=== PATIENT | male | born 1945 | race Caucasian/White ===

== ENCOUNTER 2018-06-13 08:10 | Inpatient (IN) | payer MEDICARE, OTHER ==
[2018-06-13] VITALS (11 sets, daily range): BP systolic 107–157; BP diastolic 44–74
[~2018-06-13] VITALS: Ht 180.3 cm; Wt 112.0 kg
[~2018-06-13 08:10] MED LIST: ALBU8HFA PO; ASPI-1265 PO; ATOR20TA66 PO; BENA10TA75 PO; GLU850T PO; INSU100V9 SQ; MAGN250T11 PO; MELO-102 PO; NORT50CA PO; NOVRI SQ; PHEN100C4 PO
[2018-06-13] MEDS ORDERED: heparin 10,000 units/1 ML INJ IV ONE ×2 (08:20→09:10)
[2018-06-13] MEDS ORDERED: heparin 25,000 UNIT/250ml bag 250 ML IV SCH ×4 (08:20→09:34)
[2018-06-13 08:50] LABS: BASOPHILS # (AUTO) 0.1 X10'3 (0-0.2); BASOPHILS % (AUTO) 1.2 % (0-1); EOSINOPHILS # (AUTO) 0.1 X10'3 (0-0.9); EOSINOPHILS % (AUTO) 1.7 % (0-6); HEMATOCRIT 44.4 % (42.0-52.0); HEMOGLOBIN 15.3 g/dl (14.0-17.9); LYMPHOCYTES # (AUTO) 2.2 X10'3 (1.1-4.8); LYMPHOCYTES % (AUTO) 27.9 % (21-51); MEAN CORPUSCULAR HEMOGLOBIN 30.6 PG (27.0-31.0); MEAN CORPUSCULAR HGB CONC 34.5 g/dL (33.0-36.5); MEAN CORPUSCULAR VOLUME 88.7 FL (78-98); MEAN PLATELET VOLUME 9.4 FL (7.4-10.4); MONOCYTES # (AUTO) 0.7 X10'3 (0-0.9); NEUTROPHILS # (AUTO) 4.8 X10'3 (1.8-7.7); NEUTROPHILS % (AUTO) 60.2 % (42-75); PLATELET COUNT 247 X10'3 (140-440); RED CELL DISTRIBUTION WIDTH 14.5 % (11.5-14.5)
[2018-06-13] MEDS ORDERED: ondansetron/PF 4mg/2ml inj IV PRN (09:10)
[2018-06-13] MEDS ORDERED: acetaminophen 325mg tablet PO PRN (09:10)
[2018-06-13] MEDS ORDERED: magnesium hydroxide 30ml (MOM) UD suspension PO PRN (09:10)
[2018-06-13] MEDS ORDERED: nitroGLYCERIN 0.4mg SUBLingual tab SL PRN (09:10)
[2018-06-13] MEDS ORDERED: heparin 10,000 units/1 ML INJ IV PRN (09:10)
[2018-06-13] MEDS ORDERED: mag hydrox/Alum hydrox/simeth 30ml oral suspension PO PRN (09:10)
[2018-06-13 09:17] LABS: ALANINE AMINOTRANSFERASE 39 U/L (12-78); ALBUMIN 3.6 G/DL (3.4-5.0); ALKALINE PHOSPHATASE 119 IU/L (46-116); ANION GAP 8 (8-16); BILIRUBIN,TOTAL 0.1 MG/DL (0.1-1.0); BLOOD UREA NITROGEN 20 MG/DL (7-18); BUN/CREATININE RATIO 20.2 (5.4-32.0); CALCIUM 9.1 MG/DL (8.5-10.1); CHLORIDE 102 MMOL/L (99-107); CREATININE 0.99 MG/DL (0.60-1.10); GLUCOSE 190 MG/DL (70-104); MAGNESIUM 1.8 MG/DL (1.5-2.4); SODIUM 137 MMOL/L (135-145); TOTAL CARBON DIOXIDE 26.7 MMOL/L (24-32); TOTAL PROTEIN 7.1 G/DL (6.4-8.2); eGFR 75 ML/MIN
[2018-06-13 09:19] LABS: ASPARTATE AMINO TRANSFERASE 24 U/L (10-37); POTASSIUM 4.2 MMOL/L (3.5-5.1)
[2018-06-13 09:20] LABS: PARTIAL THROMBOPLASTIN TIME 26 SECONDS (22-32); PROTHROMBIN TIME 9.8 SECONDS (9.0-12.0)
[2018-06-13] MEDS: morphine 4 MG/ML inj SYRINge IV PRN ×4 (11:15→22:16)
--- NOTE | 2018-06-13 11:30 | NUR ---
Received report from Tiffanie SLAUGHTER in ED and had the opportunity to ask questions. Pt will be brought up in 15 minutes.
--- NOTE | 2018-06-13 11:45 | NUR ---
Pt admitted from ED via gurney, accompanied by staff and family member. Pt transferred to bed via ambulation with standby assist. Tele monitor applied, vital signs taken-stable. Pt oriented to room, call light within reach.
--- NOTE | 2018-06-13 12:18 | NUR ---
Paged Dr Joshua regarding trop of 0.87. No hospitalist assigned yet. PAGER ID: [phone] MESSAGE: Brook [phone] RE: Eliecer Saha [id number]. Critical trop 0.87.
[2018-06-13] MEDS ORDERED: regadenoson 0.4mg/5ml syringe IV ONE ×2 (14:45→14:47)
[2018-06-13] MEDS ORDERED: aminophylline 250mg/10ml inj. IV ONE (14:45)
[2018-06-13] MEDS ORDERED: aminophylline inj. 10 ML IV ONE (14:47)
--- NOTE | 2018-06-13 15:39 | NUR ---
Paged Dr Joshua about pt Diabetic history and initiating protocol. PAGER ID: [phone] MESSAGE: Brook [phone]. RE: Eliecer Saha [id number] Patient is diabetic and currently uses insulin at home. A1C 7.2. Would you like to start hyper/hypoglycemic and ACHS protocol? Thank you.
[2018-06-13] MEDS ORDERED: dextrose 50%-water 50ml dispensing syringe IV PRN ×2 (16:55)
[2018-06-13] MEDS ORDERED: enoxaparin 80mg/0.8ml syringe SUBCUT ONE (16:55)
[2018-06-13] MEDS ORDERED: MESSAGE TO PHARMACY PO ONE (16:55)
[2018-06-13] MEDS ORDERED: dextrose ORAL solution 15 GM/59 ML bottle PO PRN ×2 (16:55)
[2018-06-13] MEDS ORDERED: glucagon, human recombinant 1mg kit SUBCUT PRN (16:55)
[2018-06-13] MEDS ORDERED: enoxaparin 30mg/0.3ml syringe SUBCUT ONE (17:10)
--- NOTE | 2018-06-13 17:10 | NUR ---
Report called to Donna RN at [facility] unit. Patient will be transferred to Room 307. All questions answered.
--- NOTE | 2018-06-13 17:15 | NUR ---
Pt transferred to ACCE unit room 307 via wheelchair, escorted by this RN. Tele monitor D/Cd, belongings sent with patient. Family members accompanied patient. Patient stable with no complaints at time of transfer.
--- NOTE | 2018-06-13 17:20 | NUR ---
Received patient via wheelchair after receiving report from Brook SLAUGHTER. Pt ambulated to bed with standby assist. Daughter and at bedside. VSS. Will continue to monitor closely.
--- NOTE | 2018-06-13 18:30 | NUR ---
Dr. Virk at bedside. New orders noted.
[2018-06-13] MEDS: normal saline 1000ml 1,000 ML IV SCH (18:31)
[2018-06-13] MEDS: metoprolol tartrate 25mg tablet PO SCH (19:20)
[2018-06-13] MEDS: phenytoin sod ER 100mg capsule PO SCH (19:47)
[2018-06-13] MEDS: nortriptyline 25mg capsule PO SCH (19:47)
[2018-06-13] MEDS ORDERED: predniSONE 20 mg tablet PO ONE (20:00)
[2018-06-13] MEDS: insulin glargine (Lantus) pen - multi-dose SQ SCH (21:00)
[2018-06-14] VITALS (14 sets, daily range): BP systolic 107–154; BP diastolic 50–80
--- NOTE | 2018-06-14 00:16 | NUR ---
Problems reprioritized. Patient report given, questions answered & plan of care reviewed with Darrel SLAUGHTER.
--- NOTE | 2018-06-14 00:17 | NUR ---
Patient in room MED 307. I have received report from KASANDRA Thompson and had the opportunity to ask questions and assume patient care.
[2018-06-14] MEDS: morphine 4 MG/ML inj SYRINge IV PRN ×2 (02:18→21:36)
--- NOTE | 2018-06-14 06:00 | NUR ---
Patient in room MED 307. I have received report from KASANDRA MUÑOZ, and had the opportunity to ask questions and assume patient care.
[2018-06-14 06:34] LABS: BASOPHILS # (AUTO) 0.1 X10'3 (0-0.2); BASOPHILS % (AUTO) 0.8 % (0-1); EOSINOPHILS % (AUTO) 0.3 % (0-6); HEMATOCRIT 44.9 % (42.0-52.0); HEMOGLOBIN 15.3 g/dl (14.0-17.9); LYMPHOCYTES # (AUTO) 1.2 X10'3 (1.1-4.8); LYMPHOCYTES % (AUTO) 15.6 % (21-51); MEAN CORPUSCULAR HEMOGLOBIN 30.3 PG (27.0-31.0); MEAN CORPUSCULAR HGB CONC 34.1 g/dL (33.0-36.5); MEAN PLATELET VOLUME 9.5 FL (7.4-10.4); MONOCYTES # (AUTO) 0.4 X10'3 (0-0.9); MONOCYTES % (AUTO) 5.2 % (2-12); NEUTROPHILS # (AUTO) 5.9 X10'3 (1.8-7.7); NEUTROPHILS % (AUTO) 78.1 % (42-75); PLATELET COUNT 236 X10'3 (140-440); RED BLOOD COUNT 5.04 X10'6 (4.70-6.10); RED CELL DISTRIBUTION WIDTH 14.2 % (11.5-14.5); WHITE BLOOD COUNT 7.5 X10'3 (4.5-11.0)
[2018-06-14 06:44] LABS: ALBUMIN 3.5 G/DL (3.4-5.0); ANION GAP 7 (8-16); BLOOD UREA NITROGEN 20 MG/DL (7-18); CALCIUM 8.4 MG/DL (8.5-10.1); CHLORIDE 102 MMOL/L (99-107); GLUCOSE 257 MG/DL (70-104); SODIUM 135 MMOL/L (135-145); TOTAL CARBON DIOXIDE 25.6 MMOL/L (24-32); eGFR 74 ML/MIN
[2018-06-14 06:45] LABS: POTASSIUM 4.5 MMOL/L (3.5-5.1)
[2018-06-14] MEDS ORDERED: predniSONE 20 mg tablet PO ONE (08:00)
[2018-06-14] MEDS: aspirin 81mg tablet.DR PO SCH (08:30)
[2018-06-14] MEDS: magnesium oxide 400mg tablet PO SCH ×2 (08:31→20:20)
[2018-06-14] MEDS: metoprolol tartrate 25mg tablet PO SCH ×2 (08:31→20:20)
[2018-06-14] MEDS: lisinopril 10 MG tablet PO SCH (08:32)
[2018-06-14] MEDS: atorvastatin 20mg tablet PO SCH (08:32)
[2018-06-14] MEDS: normal saline 1000ml 1,000 ML IV SCH (08:35)
[2018-06-14] MEDS: insulin Lispro (HumaLOG) vial - multi-dose SQ SCH (08:50)
[2018-06-14] MEDS: phenytoin sod ER 100mg capsule PO SCH ×2 (12:00→20:18)
--- NOTE | 2018-06-14 12:07 | NUR ---
DM consult, A1C 7.2, patient and his met at bedside, provided written DM education handout with verbal review and referral to outpatient DM education class on Monday. Patient verbalized that he takes his metformin, insulin, checks his BG and has no questions at this time. Addendum: 06/14/18 at [address] Amended: Links added.
--- NOTE | 2018-06-14 15:00 | NUR ---
PATIENT PREPPED/SHAVED FOR FINANCIAL CONTROLLER. [facility] BATH PROVIDED. NEW GOWN. PATIENT'S [place] BAND AND HEARING AIDS GIVEN TO HIS FOR SAFEKEEPING. PATIENT VERBALIZES AWARENESS OF PROCEDURE AND POST-PROCEDURE EXPECTATIONS. PATIENT AND HIS SPOUSE DENY ANY QUESTIONS OR CONCERNS.
[2018-06-14] MEDS ORDERED: LIDOcaine 1% (10mg/ml)w/preservative injection 20ml MDV ONE (16:45)
[2018-06-14] MEDS ORDERED: iohexol 350MG/ML 100ml bottle IV ONE (16:45)
[2018-06-14] MEDS ORDERED: midazolam 2 mg/2 ml injection ONE (16:45)
[2018-06-14] MEDS ORDERED: fentaNYL/PF 50MCG/1 ML 2ML syringe ONE (16:45)
[2018-06-14] MEDS ORDERED: iohexol 350 MG/ML 50ML vial IV ONE (16:45)
--- NOTE | 2018-06-14 17:00 | NUR ---
PATIENT OFF UNIT TO UPHOLSTERY COVERS INSPECTOR ALERT, ORIENTED, CALM, AND COOPERATIVE. DENIES PAIN AT THIS TIME. VITAL SIGNS STABLE.
[2018-06-14] MEDS ORDERED: diphenhydrAMINE 50 mg/ml inj ONE (17:09)
[2018-06-14] MEDS ORDERED: HYDROmorphone 1 mg/ml syringe ONE (17:29)
[2018-06-14] MEDS ORDERED: nitroGLYCERIN-Tridil 50MG/D5W 250 ML IV ONE (17:37)
--- NOTE | 2018-06-14 18:00 | NUR ---
Patient in room MED 307. I have received report from [facility] and had the opportunity to ask questions and assume patient care.
[2018-06-14] MEDS ORDERED: OXAZEpam 15mg capsule PO PRN (18:35)
[2018-06-14] MEDS ORDERED: normal saline 1000ml 1,000 ML IV SCH (18:35)
[2018-06-14] MEDS ORDERED: HYDROcodone/acetaminophen 5mg/325mg tablet PO PRN (18:35)
[2018-06-14] MEDS ORDERED: HYDROcodone/acetaminophen 10/325mg tab PO PRN (18:35)
[2018-06-14] MEDS ORDERED: proCHLORperazine 10 MG/2 ml inj IV PRN (18:35)
--- NOTE | 2018-06-14 20:00 | NUR ---
Patient was in heart cath procedure, wasnt able to assess blood glucose level. Addendum: 06/15/18 at 0026 by Santiago Estes RN Amended: Links added.
[2018-06-14] MEDS: nortriptyline 25mg capsule PO SCH (20:17)
[2018-06-14] MEDS: insulin glargine (Lantus) pen - multi-dose SQ SCH (22:32)
--- NOTE | 2018-06-14 22:42 | NUR ---
Delisa FOX "Pt Yifan Rm 307 has continued chest pain after 3 x doses of nitro. 10 chest pain/pressure. Thanks Tevin RN ext 2001"
[2018-06-14] MEDS ORDERED: nitroGLYCERIN-Tridil 50MG/D5W 250 ML IV SCH (22:50)
[2018-06-15 02:00] VITALS: BP 108/55
[2018-06-15 05:41] LABS: BASOPHILS # (AUTO) 0.1 X10'3 (0-0.2); EOSINOPHILS # (AUTO) 0.2 X10'3 (0-0.9); RED CELL DISTRIBUTION WIDTH 14.1 % (11.5-14.5)
[2018-06-15 05:44] LABS: BASOPHILS % (AUTO) 0.9 % (0-1); EOSINOPHILS % (AUTO) 1.7 % (0-6); HEMATOCRIT 42.2 % (42.0-52.0); HEMOGLOBIN 14.6 g/dl (14.0-17.9); LYMPHOCYTES # (AUTO) 2.7 X10'3 (1.1-4.8); LYMPHOCYTES % (AUTO) 24.7 % (21-51); MEAN CORPUSCULAR HEMOGLOBIN 30.8 PG (27.0-31.0); MEAN CORPUSCULAR HGB CONC 34.5 g/dL (33.0-36.5); MEAN CORPUSCULAR VOLUME 89.1 FL (78-98); MEAN PLATELET VOLUME 10.1 FL (7.4-10.4); MONOCYTES % (AUTO) 9.3 % (2-12); NEUTROPHILS # (AUTO) 6.9 X10'3 (1.8-7.7); NEUTROPHILS % (AUTO) 63.4 % (42-75); PLATELET COUNT 197 X10'3 (140-440); RED BLOOD COUNT 4.74 X10'6 (4.70-6.10)
[2018-06-15 05:48] LABS: ALBUMIN 3.3 G/DL (3.4-5.0); ANION GAP 10 (8-16); BLOOD UREA NITROGEN 19 MG/DL (7-18); BUN/CREATININE RATIO 21.3 (5.4-32.0); CALCIUM 8.6 MG/DL (8.5-10.1); CHLORIDE 104 MMOL/L (99-107); CREATININE 0.89 MG/DL (0.60-1.10); GLUCOSE 167 MG/DL (70-104); SODIUM 139 MMOL/L (135-145); TOTAL CARBON DIOXIDE 25.2 MMOL/L (24-32); eGFR 85 ML/MIN
[2018-06-15 06:00] VITALS: BP 114/59
[2018-06-15] MEDS: phenytoin sod ER 100mg capsule PO SCH ×2 (07:18→21:45)
[2018-06-15] MEDS: aspirin 81mg tablet.DR PO SCH (07:18)
[2018-06-15] MEDS: magnesium oxide 400mg tablet PO SCH ×2 (07:18→21:49)
[2018-06-15] MEDS: atorvastatin 20mg tablet PO SCH (07:18)
[2018-06-15] MEDS: metoprolol tartrate 25mg tablet PO SCH ×2 (07:19→21:46)
[2018-06-15] MEDS: lisinopril 10 MG tablet PO SCH (07:20)
[2018-06-15] MEDS ORDERED: MESSAGE TO NURSING PO ONE ×5 (08:35→10:00)
[2018-06-15] MEDS: insulin Lispro (HumaLOG) vial - multi-dose SQ SCH ×2 (08:35→13:46)
[2018-06-15] MEDS ORDERED: dextrose 50%-water 50ml dispensing syringe IV PRN (08:35)
--- NOTE | 2018-06-15 09:50 | NUR ---
vascular paged for carotids/vein mapping. respiratory paged for PFTs and ABGs technology teacher called about 2 view chest xray. patient currently on Nitro gtt, will coordinate with YANICK RN to get imagining done. blood bank called to clarify surgery date and time: informed them that per Dr. Teresa surgery scheduled for 06/16/18 1st case.
[2018-06-15 10:08] LABS: PARTIAL THROMBOPLASTIN TIME 24 SECONDS (22-32); PROTHROMBIN TIME 10.1 SECONDS (9.0-12.0)
--- NOTE | 2018-06-15 10:33 | NUR ---
respiratory at bedside for pre-op studies
[2018-06-15 10:56] LABS: ABG BASE EXCESS -1.4 mmol/L (-2.0-3.0); ABG HCO3 21.3 mmol/L (22.0-26.0); ABG OXYGEN SATURATION 97.1 % (95-98); ABG PCO2 (T) 30.7 mmHg (35.0-48.0); ABG PH (T) 7.459 (7.350-7.450); ABG PO2 (T) 92.3 mmHg (83-108); ALLEN'S TEST Positive; FCOHb 0.4 % (0.5-1.5); FMetHb 0.2 % (0.3-1.12); FO2Hb 96.5 % (94-100); TOTAL HEMOGLOBIN 15.1 G/dl (14.0-18.0)
[2018-06-15 11:00] VITALS: BP 106/50
[2018-06-15] MEDS: morphine 4 MG/ML inj SYRINge IV PRN (11:20)
--- NOTE | 2018-06-15 12:00 | NUR ---
offered pt apple pie; pt did not want MOM.
--- NOTE | 2018-06-15 13:57 | NUR ---
PAGER ID: [phone] MESSAGE: Marcelo Ga. rm 307. Stopped nitro gtt prior to xray. has remained chest pain free. will continue to monitor.
[2018-06-15 15:00] VITALS: BP 99/57
[2018-06-15] MEDS ORDERED: morphine 2 MG/ML inj. syringe IV PRN ×2 (15:12→15:13)
[2018-06-15 18:00] VITALS: BP 114/49
--- NOTE | 2018-06-15 18:00 | NUR ---
Patient in room MED 307. I have received report from KASANDRA Ventura and had the opportunity to ask questions and assume patient care.
[2018-06-15] MEDS: nortriptyline 25mg capsule PO SCH (21:50)
[2018-06-15] MEDS: insulin glargine (Lantus) pen - multi-dose SQ SCH (21:58)
[2018-06-15 22:00] VITALS: BP 138/66
[2018-06-16] VITALS (18 sets, daily range): BP systolic 100–143; BP diastolic 42–72
[2018-06-16] MEDS ORDERED: famotidine 20mg tablet PO ONE (05:00)
[2018-06-16] MEDS ORDERED: LORazepam 2 mg/ml vial IV PRN (05:00)
[2018-06-16] MEDS: mupirocin 2% nasal ointment 1gm UD NS SCH ×3 (05:16→20:11)
[2018-06-16 05:25] LABS: ALBUMIN 3.4 G/DL (3.4-5.0); ANION GAP 9 (8-16); BLOOD UREA NITROGEN 21 MG/DL (7-18); BUN/CREATININE RATIO 22.6 (5.4-32.0); CALCIUM 8.8 MG/DL (8.5-10.1); CHLORIDE 104 MMOL/L (99-107); CREATININE 0.93 MG/DL (0.60-1.10); GLUCOSE 173 MG/DL (70-104); POTASSIUM 4.4 MMOL/L (3.5-5.1); SODIUM 139 MMOL/L (135-145); eGFR 80 ML/MIN
[2018-06-16 05:26] LABS: PROTHROMBIN TIME 9.9 SECONDS (9.0-12.0)
[2018-06-16] MEDS ORDERED: insulin Lispro (HumaLOG) vial - multi-dose SQ PRN (05:30)
[2018-06-16] MEDS ORDERED: vancomycin/NS 1 GM ADD-VANTAGE 250 ML IV ONE (05:30)
[2018-06-16] MEDS ORDERED: gabapentin 400mg capsule PO ONE (05:30)
[2018-06-16] MEDS ORDERED: insulin glargine (Lantus) pen - multi-dose SQ PRN (05:30)
[2018-06-16] MEDS ORDERED: NUT.TX.IMPAIRED DIGEST FXN (Ensure Clear) 237 ML PO ONE (05:30)
[2018-06-16] MEDS ORDERED: ceFAZolin inj. 2,000 MG in dextrose 5%-water 100 ML IV ONE (05:30)
[2018-06-16 05:33] LABS: BASOPHILS # (AUTO) 0.1 X10'3 (0-0.2); BASOPHILS % (AUTO) 0.7 % (0-1); EOSINOPHILS # (AUTO) 0.2 X10'3 (0-0.9); EOSINOPHILS % (AUTO) 2.1 % (0-6); HEMATOCRIT 41.8 % (42.0-52.0); HEMOGLOBIN 14.4 g/dl (14.0-17.9); LYMPHOCYTES # (AUTO) 1.7 X10'3 (1.1-4.8); LYMPHOCYTES % (AUTO) 17.6 % (21-51); MEAN CORPUSCULAR HEMOGLOBIN 30.7 PG (27.0-31.0); MEAN CORPUSCULAR HGB CONC 34.5 g/dL (33.0-36.5); MEAN PLATELET VOLUME 9.5 FL (7.4-10.4); MONOCYTES # (AUTO) 0.8 X10'3 (0-0.9); MONOCYTES % (AUTO) 8.1 % (2-12); NEUTROPHILS % (AUTO) 71.5 % (42-75); PLATELET COUNT 198 X10'3 (140-440); RED CELL DISTRIBUTION WIDTH 14.3 % (11.5-14.5); WHITE BLOOD COUNT 9.8 X10'3 (4.5-11.0)
[2018-06-16] MEDS ORDERED: ceFAZolin 1000mg inj ONE (05:48)
[2018-06-16] MEDS ORDERED: ROPIVAcaine 0.5% (5mg/ml) 30ml vial ONE (05:48)
[2018-06-16] MEDS ORDERED: epiNEPHrine 1 mg/ml inj ONE (05:48)
[2018-06-16] MEDS ORDERED: heparin 10,000 units/1 ML INJ ONE ×2 (05:48→09:00)
[2018-06-16] MEDS ORDERED: LORazepam 2 mg/ml vial ONE ×2 (06:30→07:27)
--- NOTE | 2018-06-16 07:19 | NUR ---
Patient to OR.
[2018-06-16] MEDS ORDERED: LIDOcaine 2% (20mg/ml) 5ml vial ONE (07:25)
[2018-06-16] MEDS ORDERED: SUFENTANIL CITRATE 50 MCG/ML 2ml ampule IV ONE (07:25)
[2018-06-16] MEDS ORDERED: propofol inj 20 ML IV ONE (07:25)
[2018-06-16] MEDS ORDERED: rocuronium 10mg/ml inj IV ONE (07:27)
[2018-06-16] MEDS ORDERED: pancuronium br 1mg/ml inj IV ONE (07:27)
[2018-06-16 07:49] LABS: MAGNESIUM 2.3 MG/DL (1.5-2.4)
[2018-06-16] MEDS ORDERED: metoprolol tartrate 12.5mg (1/2 tablet) PO SCH (08:00)
[2018-06-16 08:06] LABS: ABG BASE EXCESS -1.2 mmol/L (-2.0-3.0); ABG HCO3 22.8 mmol/L (22.0-26.0); ABG OXYGEN SATURATION 98.2 % (95-98); ABG PCO2 36.2 mmHg (35.0-45.0); ABG PH 7.418 (7.350-7.450); ABG PO2 115.8 mmHg (60.0-100.0); CL (ABG) 101 mmol/L (99-107); FCOHb 0.9 % (0.5-1.5); FMetHb 0.5 % (0.3-1.12); FO2Hb 96.8 % (94-100); GLUCOSE (ABG) 305 mg/dl (70-105); IONIZED CA (ABG) 1.13 mmol/L (1.03-1.32); K (ABG) 3.9 mmol/L (3.3-5.1); NA (ABG) 134 mmol/L (135-145); TOTAL HEMOGLOBIN 14.4 G/dl (14.0-18.0)
[2018-06-16 08:31] LABS: ABG BASE EXCESS -0.3 mmol/L (-2.0-3.0); ABG HCO3 23.9 mmol/L (22.0-26.0); ABG PCO2 37.7 mmHg (35.0-45.0); ABG PO2 80.6 mmHg (60.0-100.0); CL (ABG) 101 mmol/L (99-107); FCOHb 1.1 % (0.5-1.5); FMetHb 0.2 % (0.3-1.12); FO2Hb 95.7 % (94-100); GLUCOSE (ABG) 293 mg/dl (70-105); IONIZED CA (ABG) 1.11 mmol/L (1.03-1.32); K (ABG) 3.8 mmol/L (3.3-5.1); NA (ABG) 133 mmol/L (135-145); TOTAL HEMOGLOBIN 13.9 G/dl (14.0-18.0)
[2018-06-16] MEDS ORDERED: papaverine 30 mg/ml 2ml inj. IA ONE (08:34)
[2018-06-16] MEDS ORDERED: heparin 10,000 units/1 ML INJ IR ONE (08:35)
[2018-06-16 08:46] LABS: ABG BASE EXCESS -3.3 mmol/L (-2.0-3.0); ABG HCO3 20.6 mmol/L (22.0-26.0); ABG OXYGEN SATURATION 98.1 % (95-98); ABG PH 7.401 (7.350-7.450); ABG PO2 107.6 mmHg (60.0-100.0); CL (ABG) 102 mmol/L (99-107); FCOHb 1.1 % (0.5-1.5); FMetHb 0.1 % (0.3-1.12); FO2Hb 96.9 % (94-100); GLUCOSE (ABG) 255 mg/dl (70-105); IONIZED CA (ABG) 1.13 mmol/L (1.03-1.32); K (ABG) 3.4 mmol/L (3.3-5.1); NA (ABG) 135 mmol/L (135-145); TOTAL HEMOGLOBIN 13.6 G/dl (14.0-18.0)
[2018-06-16 09:00] LABS: ABG BASE EXCESS -2.8 mmol/L (-2.0-3.0); ABG HCO3 21.6 mmol/L (22.0-26.0); ABG OXYGEN SATURATION 99.6 % (95-98); ABG PCO2 36.4 mmHg (35.0-45.0); ABG PH 7.392 (7.350-7.450); ABG PO2 424.2 mmHg (60.0-100.0); CL (ABG) 98 mmol/L (99-107); FCOHb 0.7 % (0.5-1.5); FMetHb 0.1 % (0.3-1.12); FO2Hb 98.8 % (94-100); GLUCOSE (ABG) 200 mg/dl (70-105); IONIZED CA (ABG) 1.03 mmol/L (1.03-1.32); K (ABG) 4.1 mmol/L (3.3-5.1); NA (ABG) 131 mmol/L (135-145); TOTAL HEMOGLOBIN 10.7 G/dl (14.0-18.0)
[2018-06-16] MEDS ORDERED: methylPREDNISolone sod. succ. 500mg inj ONE (09:00)
[2018-06-16] MEDS ORDERED: aminocaproic acid 250 MG/1 ML inj. ONE (09:00)
[2018-06-16] MEDS ORDERED: sodium bicarbonate (8.4%) inj. 1 MEQ/ML ML ONE (09:00)
[2018-06-16] MEDS ORDERED: papaverine 30 mg/ml 2ml inj. ONE (09:00)
[2018-06-16] MEDS ORDERED: potassium Cl 2 mEq/ml inj IV ONE (09:00)
[2018-06-16] MEDS ORDERED: LIDOcaine 2% (20 mg/ml) 5ml cardiac syringe ONE (09:00)
[2018-06-16] MEDS ORDERED: phenylephrine 10mg/ml inj. ONE (09:00)
[2018-06-16] MEDS ORDERED: heparin 1,000 units/ml 10ml inj ONE (09:00)
[2018-06-16] MEDS ORDERED: calcium chloride 100 MG/1 ML inj IV ONE (09:00)
[2018-06-16] MEDS ORDERED: albumin (human) 25% 100 ML IV solution IV ONE (09:00)
[2018-06-16 09:06] LABS: ABG BASE EXCESS VENOUS -3.2 mmol/L; ABG HCO3 VENOUS 22.3 mmol/L; ABG PCO2 VENOUS 41.6 mmHg; ABG PO2 VENOUS 43.8 mmHg; CL (ABG) 98 mmol/L (99-107); FCOHb VENOUS 1.3 %; FHHb VENOUS 19.9 %; FMetHb VENOUS 0.1 %; FO2Hb VENOUS 78.7 %; GLUCOSE (ABG) 202 mg/dl (70-105); IONIZED CA (ABG) 1.06 mmol/L (1.03-1.32); K (ABG) 3.4 mmol/L (3.3-5.1); NA (ABG) 132 mmol/L (135-145); TOTAL HEMOGLOBIN 11.1 G/dl (14.0-18.0)
[2018-06-16 09:25] LABS: ABG BASE EXCESS -3.2 mmol/L (-2.0-3.0); ABG HCO3 22.4 mmol/L (22.0-26.0); ABG OXYGEN SATURATION 99.1 % (95-98); ABG PCO2 42.3 mmHg (35.0-45.0); ABG PH 7.342 (7.350-7.450); ABG PO2 347.2 mmHg (60.0-100.0); CL (ABG) 101 mmol/L (99-107); FCOHb 0.3 % (0.5-1.5); FMetHb 0.5 % (0.3-1.12); FO2Hb 98.3 % (94-100); GLUCOSE (ABG) 193 mg/dl (70-105); IONIZED CA (ABG) 1.04 mmol/L (1.03-1.32); K (ABG) 3.8 mmol/L (3.3-5.1); NA (ABG) 132 mmol/L (135-145); TOTAL HEMOGLOBIN 11.3 G/dl (14.0-18.0)
[2018-06-16 09:51] LABS: ABG BASE EXCESS -2.2 mmol/L (-2.0-3.0); ABG HCO3 23.6 mmol/L (22.0-26.0); ABG OXYGEN SATURATION 99.1 % (95-98); ABG PCO2 44.8 mmHg (35.0-45.0); ABG PO2 367.3 mmHg (60.0-100.0); CL (ABG) 101 mmol/L (99-107); FCOHb 0.3 % (0.5-1.5); FMetHb 0.5 % (0.3-1.12); FO2Hb 98.3 % (94-100); GLUCOSE (ABG) 179 mg/dl (70-105); IONIZED CA (ABG) 1.03 mmol/L (1.03-1.32); K (ABG) 3.7 mmol/L (3.3-5.1); NA (ABG) 134 mmol/L (135-145); TOTAL HEMOGLOBIN 11.4 G/dl (14.0-18.0)
[2018-06-16] MEDS ORDERED: ipratropium/albuterol 3ml nebule IH PRN (10:05)
[2018-06-16 10:10] LABS: ABG BASE EXCESS 1.8 mmol/L (-2.0-3.0); ABG HCO3 27.8 mmol/L (22.0-26.0); ABG OXYGEN SATURATION 99.2 % (95-98); ABG PCO2 50.2 mmHg (35.0-45.0); ABG PH 7.361 (7.350-7.450); ABG PO2 375.1 mmHg (60.0-100.0); CL (ABG) 100 mmol/L (99-107); FCOHb 0.6 % (0.5-1.5); FMetHb 0.6 % (0.3-1.12); GLUCOSE (ABG) 170 mg/dl (70-105); IONIZED CA (ABG) 0.97 mmol/L (1.03-1.32); K (ABG) 3.6 mmol/L (3.3-5.1); NA (ABG) 133 mmol/L (135-145); TOTAL HEMOGLOBIN 10.9 G/dl (14.0-18.0)
[2018-06-16 10:51] LABS: ABG BASE EXCESS -2.5 mmol/L (-2.0-3.0); ABG HCO3 21.2 mmol/L (22.0-26.0); ABG OXYGEN SATURATION 95.1 % (95-98); ABG PCO2 33.2 mmHg (35.0-45.0); ABG PH 7.424 (7.350-7.450); CL (ABG) 104 mmol/L (99-107); FCOHb 0.6 % (0.5-1.5); FMetHb 0.6 % (0.3-1.12); GLUCOSE (ABG) 157 mg/dl (70-105); IONIZED CA (ABG) 1.13 mmol/L (1.03-1.32); K (ABG) 3.6 mmol/L (3.3-5.1); NA (ABG) 133 mmol/L (135-145); TOTAL HEMOGLOBIN 11.6 G/dl (14.0-18.0)
[2018-06-16] MEDS: insulin regular, human 100 UNIT in normal saline 100ml IV soln 100 ML IV SCH ×4 (10:53→17:01)
[2018-06-16] MEDS: aspirin 81mg tablet.DR PO SCH (10:54)
[2018-06-16] MEDS: atorvastatin 20mg tablet PO SCH (10:54)
[2018-06-16] MEDS: phenytoin sod ER 100mg capsule PO SCH ×2 (10:54→20:00)
[2018-06-16] MEDS: lisinopril 10 MG tablet PO SCH (10:55)
[2018-06-16] MEDS: magnesium oxide 400mg tablet PO SCH (10:55)
[2018-06-16] MEDS ORDERED: DOPamine 400mg/D5W 250ml 250 ML IV PRN (11:11)
[2018-06-16] MEDS ORDERED: niCARDipine-NS 40mg/200ml IVPB 200 ML IV PRN (11:11)
[2018-06-16] MEDS ORDERED: nitroGLYCERIN-Tridil 50MG/D5W 250 ML IV PRN (11:11)
[2018-06-16] MEDS ORDERED: magnesium 2GM in 50ml NS 50 ML IV PRN (11:15)
[2018-06-16] MEDS ORDERED: metoclopramide 5 mg/ml inj IV PRN (11:15)
[2018-06-16] MEDS ORDERED: pantoprazole 40 MG vial IV ONE (11:15)
[2018-06-16] MEDS ORDERED: potassium Cl 20 mEq SR tablet PO PRN (11:15)
[2018-06-16] MEDS ORDERED: sodium phosphate inj. 15 MMOL in dextrose 5%-water 150 ML IV PRN (11:15)
[2018-06-16] MEDS ORDERED: normal saline 250ml IV soln 250 ML IV PRN (11:15)
[2018-06-16] MEDS ORDERED: dextrose 50%-water 50ml dispensing syringe IV PRN (11:15)
[2018-06-16] MEDS ORDERED: HYDROcodone/acetaminophen 10/325mg tab PO PRN (11:15)
[2018-06-16] MEDS ORDERED: magnesium hydroxide 30ml (MOM) UD suspension PO PRN (11:15)
[2018-06-16] MEDS ORDERED: albumin (Human) 5% 250ml 250 ML IV PRN (11:15)
[2018-06-16] MEDS ORDERED: ondansetron/PF 4mg/2ml inj IV PRN (11:15)
[2018-06-16] MEDS ORDERED: sodium phosphate inj. 30 MMOL in dextrose 5%-water 250 ML IV PRN (11:15)
[2018-06-16] MEDS ORDERED: magnesium 4gm in 100ml NS 100 ML IV PRN (11:15)
[2018-06-16] MEDS ORDERED: insulin regular, human inj. 100 UNITS in normal saline 100ml IV soln 100 ML IV SCH ×2 (11:15)
--- NOTE | 2018-06-16 11:28 | NUR ---
CABG consult: Pt s/p CABGx5; will need high protein ed once clinically stable prior to d/c. Addendum: 06/16/18 at [address] Amended: Links added.
--- NOTE | 2018-06-16 11:45 | NUR ---
Received to room , accompanied by Dr. Teresa and surgical crew. Placed on ventilator, to monitoring and evaluation advisor, arterial line and PA line pressure monitored. Chest tubes to suction at 20 cm. Zarate cath to gravity drainage. Dressings are dry and intact. See assessment record. All vasoactive drugs are infusing via central line.
[2018-06-16 12:01] LABS: BASOPHILS % (AUTO) 0.2 % (0-1); EOSINOPHILS # (AUTO) 0.1 X10'3 (0-0.9); EOSINOPHILS % (AUTO) 0.5 % (0-6); HEMATOCRIT 33.7 % (42.0-52.0); HEMOGLOBIN 11.7 g/dl (14.0-17.9); LYMPHOCYTES # (AUTO) 0.6 X10'3 (1.1-4.8); LYMPHOCYTES % (AUTO) 3.7 % (21-51); MEAN CORPUSCULAR HEMOGLOBIN 30.8 PG (27.0-31.0); MEAN CORPUSCULAR HGB CONC 34.6 g/dL (33.0-36.5); MEAN CORPUSCULAR VOLUME 89.1 FL (78-98); MEAN PLATELET VOLUME 9.6 FL (7.4-10.4); MONOCYTES # (AUTO) 1.1 X10'3 (0-0.9); MONOCYTES % (AUTO) 6.2 % (2-12); NEUTROPHILS # (AUTO) 15.5 X10'3 (1.8-7.7); NEUTROPHILS % (AUTO) 89.4 % (42-75); PLATELET COUNT 155 X10'3 (140-440); RED BLOOD COUNT 3.79 X10'6 (4.70-6.10); RED CELL DISTRIBUTION WIDTH 14.3 % (11.5-14.5); WHITE BLOOD COUNT 17.3 X10'3 (4.5-11.0)
[2018-06-16 12:06] LABS: ABG BASE EXCESS -1.2 mmol/L (-2.0-3.0); ABG HCO3 23.1 mmol/L (22.0-26.0); ABG OXYGEN SATURATION 98.4 % (95-98); ABG PCO2 (T) 37.2 mmHg (35.0-48.0); ABG PO2 (T) 170.8 mmHg (83-108); FCOHb 0.3 % (0.5-1.5); FMetHb 0.2 % (0.3-1.12); FO2Hb 97.9 % (94-100); MINUTE VOLUME 9 L/min; PEEP 5 cm H2O; RESPIRATORY RATE 12 b/min; RESPIRATORY RATE (OBSERVED) 12 b/min; TIDAL VOLUME 700 mL; TOTAL HEMOGLOBIN 12.4 G/dl (14.0-18.0)
[2018-06-16 12:06] LABS: ALANINE AMINOTRANSFERASE 27 U/L (12-78); ALBUMIN 2.7 G/DL (3.4-5.0); ALBUMIN/GLOBULIN RATIO 1.2 (1.1-1.5); ALKALINE PHOSPHATASE 82 IU/L (46-116); ANION GAP 10 (8-16); ASPARTATE AMINO TRANSFERASE 29 U/L (10-37); BILIRUBIN,TOTAL 0.3 MG/DL (0.1-1.0); BLOOD UREA NITROGEN 17 MG/DL (7-18); CHLORIDE 107 MMOL/L (99-107); CREATININE 1.13 MG/DL (0.60-1.10); GLUCOSE 140 MG/DL (70-104); MAGNESIUM 2.1 MG/DL (1.5-2.4); PHOSPHORUS 1.8 MG/DL (2.3-4.5); POTASSIUM 3.9 MMOL/L (3.5-5.1); SODIUM 142 MMOL/L (135-145); TOTAL CARBON DIOXIDE 25.3 MMOL/L (24-32); eGFR 64 ML/MIN
[2018-06-16] MEDS: insulin Lispro (HumaLOG) vial - multi-dose SQ SCH ×2 (12:20→17:59)
[2018-06-16] MEDS: gabapentin 300mg capsule PO SCH ×2 (12:23→20:11)
[2018-06-16] MEDS: sodium chloride 0.45% 1,000 ML IV SCH (12:24)
[2018-06-16 12:29] LABS: INR 1.1 INR; PARTIAL THROMBOPLASTIN TIME 26 SECONDS (22-32); PROTHROMBIN TIME 10.7 SECONDS (9.0-12.0)
[2018-06-16 12:42] LABS: TOTAL CELLS COUNTED 100
[2018-06-16] MEDS: potassium Cl 20mEq/100mL bag 100 ML IV PRN ×2 (12:42→13:54)
[2018-06-16 12:43] LABS: PLATELET ESTIMATE NORMAL
[2018-06-16] MEDS ORDERED: sodium phosphate inj. 15 MMOL in dextrose 5%-water 150 ML IV ONE (13:10)
[2018-06-16] MEDS: morphine 4 MG/ML inj SYRINge IV PRN ×3 (13:19→19:02)
--- NOTE | 2018-06-16 15:00 | NUR ---
pt is intubated, arousable with voice, moving all extremities. following verbal commands, CTs patent, draining serosang drainage. strong doppler pulses obtained. Updated Dr. Teresa on pt condition, albumin order received and given per MD order. pain medication given for pain relief. updated family on plan of care. electrolyte replaced per protocol.
[2018-06-16] MEDS: ceFAZolin 1GM/D5W- ADD-VANTAGE 50 ML IV SCH ×2 (15:20→23:51)
--- NOTE | 2018-06-16 17:00 | NUR ---
pt is awaking, opening eyes to voice and following command, attempted weaning parameters with RT, however, unable to meet all the criteria.
[2018-06-16 17:05] LABS: ABG BASE EXCESS -2.5 mmol/L (-2.0-3.0); ABG HCO3 21.9 mmol/L (22.0-26.0); ABG OXYGEN SATURATION 97.1 % (95-98); ABG PCO2 (T) 37.3 mmHg (35.0-48.0); ABG PH (T) 7.389 (7.350-7.450); ABG PO2 (T) 101.5 mmHg (83-108); FCOHb 0.3 % (0.5-1.5); FMetHb 0.1 % (0.3-1.12); FO2Hb 96.7 % (94-100); MINUTE VOLUME 7 L/min; PATIENT TEMPERATURE 37.5; PEEP 5 cm H2O; RESPIRATORY RATE (OBSERVED) 17 b/min; TOTAL HEMOGLOBIN 13.1 G/dl (14.0-18.0)
[2018-06-16 17:54] LABS: BASOPHILS % (AUTO) 0.2 % (0-1); EOSINOPHILS % (AUTO) 0.1 % (0-6); HEMATOCRIT 36.1 % (42.0-52.0); HEMOGLOBIN 12.3 g/dl (14.0-17.9); LYMPHOCYTES # (AUTO) 0.6 X10'3 (1.1-4.8); LYMPHOCYTES % (AUTO) 4.2 % (21-51); MEAN CORPUSCULAR HEMOGLOBIN 30.3 PG (27.0-31.0); MEAN CORPUSCULAR HGB CONC 34.2 g/dL (33.0-36.5); MEAN CORPUSCULAR VOLUME 88.5 FL (78-98); MEAN PLATELET VOLUME 9.4 FL (7.4-10.4); MONOCYTES # (AUTO) 1.1 X10'3 (0-0.9); MONOCYTES % (AUTO) 7.6 % (2-12); NEUTROPHILS # (AUTO) 12.3 X10'3 (1.8-7.7); NEUTROPHILS % (AUTO) 87.9 % (42-75); PLATELET COUNT 169 X10'3 (140-440); RED BLOOD COUNT 4.07 X10'6 (4.70-6.10); RED CELL DISTRIBUTION WIDTH 14.3 % (11.5-14.5)
[2018-06-16 18:08] LABS: ALBUMIN 3.2 G/DL (3.4-5.0); ANION GAP 8 (8-16); BLOOD UREA NITROGEN 17 MG/DL (7-18); BUN/CREATININE RATIO 17.5 (5.4-32.0); CALCIUM 8.2 MG/DL (8.5-10.1); CHLORIDE 108 MMOL/L (99-107); CREATININE 0.97 MG/DL (0.60-1.10); GLUCOSE 133 MG/DL (70-104); MAGNESIUM 2.7 MG/DL (1.5-2.4); POTASSIUM 4.4 MMOL/L (3.5-5.1); SODIUM 140 MMOL/L (135-145); TOTAL CARBON DIOXIDE 24.4 MMOL/L (24-32); eGFR 77 ML/MIN
--- NOTE | 2018-06-16 18:27 | NUR ---
Problems reprioritized. Patient report given, questions answered & plan of care reviewed with KASANDRA Keller.
--- NOTE | 2018-06-16 19:52 | NUR ---
1830..Patient in room CICU 2012. I have received report from Vance SLAUGHTER and had the opportunity to ask questions and assume patient care.
[2018-06-16] MEDS: docusate sod 100mg capsule PO SCH (20:00)
[2018-06-16] MEDS: vancomycin/NS 1 GM ADD-VANTAGE 250 ML IV SCH (20:11)
[2018-06-16] MEDS: nortriptyline 25mg capsule PO SCH (20:11)
--- NOTE | 2018-06-16 21:12 | NUR ---
2000..Assessment as noted, morphine given earlier appears effective for pain relief. Pt wakes easily follows commands, but does not stay awake.
[2018-06-16 21:16] LABS: ABG HCO3 22.6 mmol/L (22.0-26.0); ABG OXYGEN SATURATION 96.4 % (95-98); ABG PCO2 (T) 39.8 mmHg (35.0-48.0); ABG PH (T) 7.376 (7.350-7.450); FCOHb 0.3 % (0.5-1.5); FMetHb 0.2 % (0.3-1.12); FO2Hb 95.9 % (94-100); MINUTE VOLUME 8 L/min; PATIENT TEMPERATURE 37.9; PEEP 5 cm H2O; RESPIRATORY RATE (OBSERVED) 23 b/min; TOTAL HEMOGLOBIN 12.9 G/dl (14.0-18.0)
--- NOTE | 2018-06-16 21:38 | NUR ---
2129..Passed weaning parameters, no wheezing or stridor, extubated at 2124, nasal cannul at 4l resp easy and nonlabored.
[2018-06-16] MEDS: HYDROcodone/acetaminophen 10/325mg tab PO PRN (21:43)
[2018-06-17] VITALS (25 sets, daily range): BP systolic 78–148; BP diastolic 45–67
[2018-06-17] MEDS: morphine 4 MG/ML inj SYRINge IV PRN ×4 (00:12→20:05)
[2018-06-17 02:32] LABS: BASOPHILS # (AUTO) 0.1 X10'3 (0-0.2); BASOPHILS % (AUTO) 0.4 % (0-1); EOSINOPHILS % (AUTO) 0.1 % (0-6); HEMATOCRIT 37.1 % (42.0-52.0); HEMOGLOBIN 12.8 g/dl (14.0-17.9); LYMPHOCYTES # (AUTO) 1.3 X10'3 (1.1-4.8); LYMPHOCYTES % (AUTO) 7.5 % (21-51); MEAN CORPUSCULAR HEMOGLOBIN 30.8 PG (27.0-31.0); MEAN CORPUSCULAR HGB CONC 34.4 g/dL (33.0-36.5); MEAN CORPUSCULAR VOLUME 89.4 FL (78-98); MEAN PLATELET VOLUME 9.8 FL (7.4-10.4); MONOCYTES % (AUTO) 11.2 % (2-12); NEUTROPHILS # (AUTO) 14.4 X10'3 (1.8-7.7); NEUTROPHILS % (AUTO) 80.8 % (42-75); PLATELET COUNT 164 X10'3 (140-440); RED BLOOD COUNT 4.15 X10'6 (4.70-6.10); RED CELL DISTRIBUTION WIDTH 14.4 % (11.5-14.5); WHITE BLOOD COUNT 17.8 X10'3 (4.5-11.0)
[2018-06-17 02:35] LABS: ALANINE AMINOTRANSFERASE 25 U/L (12-78); ALKALINE PHOSPHATASE 89 IU/L (46-116); ANION GAP 9 (8-16); ASPARTATE AMINO TRANSFERASE 37 U/L (10-37); BILIRUBIN,TOTAL 0.4 MG/DL (0.1-1.0); BLOOD UREA NITROGEN 16 MG/DL (7-18); BUN/CREATININE RATIO 18.4 (5.4-32.0); CALCIUM 8.2 MG/DL (8.5-10.1); CHLORIDE 108 MMOL/L (99-107); CREATININE 0.87 MG/DL (0.60-1.10); GLUCOSE 130 MG/DL (70-104); MAGNESIUM 2.4 MG/DL (1.5-2.4); PARTIAL THROMBOPLASTIN TIME 27 SECONDS (22-32); PHOSPHORUS 3.6 MG/DL (2.3-4.5); POTASSIUM 4.2 MMOL/L (3.5-5.1); PROTHROMBIN TIME 9.9 SECONDS (9.0-12.0); SODIUM 141 MMOL/L (135-145); TOTAL CARBON DIOXIDE 24.1 MMOL/L (24-32); eGFR 87 ML/MIN
[2018-06-17] MEDS: HYDROcodone/acetaminophen 10/325mg tab PO PRN ×3 (03:11→16:22)
[2018-06-17] MEDS: potassium Cl 20mEq/100mL bag 100 ML IV PRN (03:13)
[2018-06-17 03:32] LABS: TOTAL CELLS COUNTED 100
[2018-06-17 03:33] LABS: PLATELET ESTIMATE NORMAL
--- NOTE | 2018-06-17 06:18 | NUR ---
0615..Problems reprioritized. Patient report given, questions answered & plan of care reviewed with Tracy SLAUGHTER.
[2018-06-17] MEDS: ceFAZolin 1GM/D5W- ADD-VANTAGE 50 ML IV SCH ×3 (07:27→23:48)
[2018-06-17] MEDS: mupirocin 2% nasal ointment 1gm UD NS SCH ×2 (07:27→20:03)
[2018-06-17] MEDS: phenytoin sod ER 100mg capsule PO SCH ×2 (07:28→19:58)
[2018-06-17] MEDS: aspirin 325mg tablet, delayed-release (Ecotrin) PO SCH (07:28)
[2018-06-17] MEDS: atorvastatin 10mg tablet PO SCH (07:28)
[2018-06-17] MEDS: gabapentin 300mg capsule PO SCH ×3 (07:28→19:59)
[2018-06-17] MEDS: metoprolol tartrate 12.5mg (1/2 tablet) PO SCH ×2 (07:29→19:58)
[2018-06-17] MEDS: docusate sod 100mg capsule PO SCH ×2 (07:29→19:59)
[2018-06-17] MEDS ORDERED: dextrose ORAL solution 15 GM/59 ML bottle PO PRN ×2 (07:55)
[2018-06-17] MEDS ORDERED: dextrose 50%-water 50ml dispensing syringe IV PRN ×2 (07:55)
[2018-06-17] MEDS ORDERED: MESSAGE TO PHARMACY PO ONE (07:55)
[2018-06-17] MEDS ORDERED: glucagon, human recombinant 1mg kit SUBCUT PRN (07:55)
[2018-06-17] MEDS ORDERED: insulin glargine (Lantus) pen - multi-dose SQ SCH (08:00)
[2018-06-17] MEDS: vancomycin/NS 1 GM ADD-VANTAGE 250 ML IV SCH ×2 (08:52→20:03)
[2018-06-17] MEDS: insulin Lispro (HumaLOG) vial - multi-dose SQ SCH ×2 (13:19→19:05)
--- NOTE | 2018-06-17 14:51 | NUR ---
0600- Received report from Gayle Monzon and assumed hannah. 1100- Dr Shabazz rounds- DC PA line, art line and isolate pacer wires.
--- NOTE | 2018-06-17 18:18 | NUR ---
Problems reprioritized. Patient report given, questions answered & plan of care reviewed with Odalis.
--- NOTE | 2018-06-17 18:20 | NUR ---
Patient in room CICU 2012. I have received report from KASANDRA Schwab and had the opportunity to ask questions and assume patient care. Patient is A&O x3, LOPEZ and is resting comfortably with at bedside. Sternal precautions in place and patient educated, I will continue to monitor.
[2018-06-17] MEDS: nortriptyline 25mg capsule PO SCH (20:04)
[2018-06-18] VITALS (24 sets, daily range): BP systolic 101–135; BP diastolic 51–84
[2018-06-18] MEDS: acetaminophen 325mg tablet PO PRN (02:07)
[2018-06-18 02:21] LABS: BASOPHILS # (AUTO) 0.2 X10'3 (0-0.2); BASOPHILS % (AUTO) 0.9 % (0-1); EOSINOPHILS % (AUTO) 0.3 % (0-6); HEMATOCRIT 34.2 % (42.0-52.0); HEMOGLOBIN 11.7 g/dl (14.0-17.9); LYMPHOCYTES # (AUTO) 1.5 X10'3 (1.1-4.8); MEAN CORPUSCULAR HEMOGLOBIN 30.7 PG (27.0-31.0); MEAN CORPUSCULAR HGB CONC 34.2 g/dL (33.0-36.5); MEAN CORPUSCULAR VOLUME 89.9 FL (78-98); MONOCYTES # (AUTO) 1.7 X10'3 (0-0.9); MONOCYTES % (AUTO) 10.3 % (2-12); NEUTROPHILS # (AUTO) 13.4 X10'3 (1.8-7.7); NEUTROPHILS % (AUTO) 79.5 % (42-75); PLATELET COUNT 140 X10'3 (140-440); RED BLOOD COUNT 3.81 X10'6 (4.70-6.10); RED CELL DISTRIBUTION WIDTH 14.3 % (11.5-14.5); WHITE BLOOD COUNT 16.9 X10'3 (4.5-11.0)
[2018-06-18 02:33] LABS: ALBUMIN 2.7 G/DL (3.4-5.0); ANION GAP 8 (8-16); BLOOD UREA NITROGEN 21 MG/DL (7-18); BUN/CREATININE RATIO 18.9 (5.4-32.0); CALCIUM 8.4 MG/DL (8.5-10.1); CHLORIDE 99 MMOL/L (99-107); CREATININE 1.11 MG/DL (0.60-1.10); GLUCOSE 201 MG/DL (70-104); MAGNESIUM 2.5 MG/DL (1.5-2.4); PHOSPHORUS 2.7 MG/DL (2.3-4.5); POTASSIUM 4.9 MMOL/L (3.5-5.1); SODIUM 133 MMOL/L (135-145); TOTAL CARBON DIOXIDE 26.4 MMOL/L (24-32); eGFR 65 ML/MIN
[2018-06-18 05:10] LABS: ACT @ 1.70 U 237 SEC (193-297); ACT @ 2.84 U 339 SEC (260-420); BASELINE ACT 115 SEC (101-148)
[2018-06-18 05:11] LABS: ACTIVATED CLOTTING TIME 113 SEC (101-148)
[2018-06-18 05:35] LABS: TOTAL CELLS COUNTED 100
[2018-06-18 05:38] LABS: PLATELET ESTIMATE NORMAL; TOXIC GRANULATION 1+
--- NOTE | 2018-06-18 06:21 | NUR ---
Patient in room CICU 2013. I have received report from Odalis and had the opportunity to ask questions and assume patient care.
[2018-06-18] MEDS ORDERED: magnesium 2GM in 50ml NS 50 ML IV ONE (07:15)
[2018-06-18] MEDS ORDERED: furosemide 40mg/4ml inj IV ONE (07:15)
[2018-06-18] MEDS: pantoprazole 40mg Tablet.DR PO SCH (07:28)
[2018-06-18] MEDS: phenytoin sod ER 100mg capsule PO SCH ×2 (07:28→19:53)
[2018-06-18] MEDS: atorvastatin 10mg tablet PO SCH (07:29)
[2018-06-18] MEDS: aspirin 325mg tablet, delayed-release (Ecotrin) PO SCH (07:29)
[2018-06-18] MEDS: gabapentin 300mg capsule PO SCH (07:30)
[2018-06-18] MEDS: metoprolol tartrate 12.5mg (1/2 tablet) PO SCH ×2 (07:31→19:54)
[2018-06-18] MEDS: docusate sod 100mg capsule PO SCH ×2 (07:31→19:54)
[2018-06-18] MEDS: HYDROcodone/acetaminophen 10/325mg tab PO PRN ×3 (07:31→23:57)
[2018-06-18] MEDS: mupirocin 2% nasal ointment 1gm UD NS SCH (07:32)
[2018-06-18] MEDS: insulin glargine (Lantus) pen - multi-dose SQ SCH (08:29)
[2018-06-18] MEDS: insulin Lispro (HumaLOG) vial - multi-dose SQ SCH ×4 (08:36→20:33)
--- NOTE | 2018-06-18 10:50 | NUR ---
Initial: Pt s/p CABGx5; advanced to NCS/regular diet w/ PO 0-25% meals decreased post-op. Will need carb controlled diet addition once PO improves. Pt unable to wake during RD visit; written CABG ed w/ RD contact information left at bedside. LBM 4/ receiving colace BID and first MoM this AM per RN. Soy allergy so unable to provide ONS. Will monitor for additional protein and bowel care needs post-op. Rec: 1. advance to carb controlled diet 2. monitor for additional protein preferences 3. routine bowel care 4. wt per rx Addendum: 06/18/18 at [address] Amended: Links added.
[2018-06-18] MEDS: sodium chloride 0.45% 1,000 ML IV SCH (11:11)
[2018-06-18] MEDS ORDERED: albumin (Human) 5% 250ml 250 ML IV ONE (12:00)
--- NOTE | 2018-06-18 12:11 | NUR ---
0800 Dr Teresa rounded, alerted to 8kg weight gain, max temp of 38.4, CT output on nocs of 220 and 100 so far this shift. Ordered 40 lasix, and CT to stay in for now. 1200- Call placed to [facility], only had 375 out after lasix, last 3 hour output, 17, 14, and 4 cc. ordered 250cc 5% albumin.
--- NOTE | 2018-06-18 18:34 | NUR ---
1800-Pt remains under my care at change of shift.
[2018-06-18] MEDS: nortriptyline 25mg capsule PO SCH (19:56)
--- NOTE | 2018-06-18 23:52 | NUR ---
Patient in room CICU 2013. I have received report from Josselin SLAUGHTER and had the opportunity to ask questions and assume patient care.
--- NOTE | 2018-06-18 23:53 | NUR ---
Problems reprioritized. Patient report given, questions answered & plan of care reviewed with
[2018-06-19] VITALS (19 sets, daily range): BP systolic 105–145; BP diastolic 56–71
[2018-06-19] MEDS: insulin regular, human 100 UNIT in normal saline 100ml IV soln 100 ML IV SCH ×2 (00:10)
[2018-06-19 02:57] LABS: ALBUMIN 2.5 G/DL (3.4-5.0); ANION GAP 5 (8-16); BLOOD UREA NITROGEN 24 MG/DL (7-18); BUN/CREATININE RATIO 21.2 (5.4-32.0); CALCIUM 8.6 MG/DL (8.5-10.1); CHLORIDE 99 MMOL/L (99-107); CREATININE 1.13 MG/DL (0.60-1.10); GLUCOSE 172 MG/DL (70-104); MAGNESIUM 2.6 MG/DL (1.5-2.4); POTASSIUM 4.6 MMOL/L (3.5-5.1); SODIUM 131 MMOL/L (135-145); eGFR 64 ML/MIN
[2018-06-19 03:01] LABS: BASOPHILS % (AUTO) 0.3 % (0-1); EOSINOPHILS # (AUTO) 0.1 X10'3 (0-0.9); EOSINOPHILS % (AUTO) 0.9 % (0-6); HEMATOCRIT 31.5 % (42.0-52.0); HEMOGLOBIN 10.8 g/dl (14.0-17.9); LYMPHOCYTES # (AUTO) 1.1 X10'3 (1.1-4.8); LYMPHOCYTES % (AUTO) 8.1 % (21-51); MEAN CORPUSCULAR HEMOGLOBIN 30.9 PG (27.0-31.0); MEAN CORPUSCULAR HGB CONC 34.4 g/dL (33.0-36.5); MEAN PLATELET VOLUME 10.2 FL (7.4-10.4); MONOCYTES # (AUTO) 1.3 X10'3 (0-0.9); MONOCYTES % (AUTO) 9.6 % (2-12); NEUTROPHILS % (AUTO) 81.1 % (42-75); PLATELET COUNT 144 X10'3 (140-440); RED CELL DISTRIBUTION WIDTH 14.3 % (11.5-14.5); WHITE BLOOD COUNT 13.5 X10'3 (4.5-11.0)
[2018-06-19] MEDS: Neutra Phos packet PO PRN ×2 (05:50→13:58)
--- NOTE | 2018-06-19 06:31 | NUR ---
Problems reprioritized. Patient report given, questions answered & plan of care reviewed with Pastor SLAUGHTER.
--- NOTE | 2018-06-19 06:36 | NUR ---
Patient in room CICU 2013. I have received report from KASANDRA Ramos and had the opportunity to ask questions and assume patient care.
[2018-06-19] MEDS: pantoprazole 40mg Tablet.DR PO SCH (07:33)
[2018-06-19] MEDS: phenytoin sod ER 100mg capsule PO SCH ×2 (08:29→20:53)
[2018-06-19] MEDS: metoprolol tartrate 12.5mg (1/2 tablet) PO SCH ×2 (08:29→20:53)
[2018-06-19] MEDS: aspirin 325mg tablet, delayed-release (Ecotrin) PO SCH (08:29)
[2018-06-19] MEDS: docusate sod 100mg capsule PO SCH ×2 (08:29→20:53)
[2018-06-19] MEDS: atorvastatin 10mg tablet PO SCH (08:29)
[2018-06-19] MEDS: insulin glargine (Lantus) pen - multi-dose SQ SCH (08:37)
[2018-06-19] MEDS: insulin Lispro (HumaLOG) vial - multi-dose SQ SCH ×3 (08:42→21:07)
[2018-06-19] MEDS ORDERED: magnesium 4gm in 100ml NS 100 ML IV PRN (09:35)
[2018-06-19] MEDS ORDERED: magnesium Cl slow-release 64mg tablet PO PRN (09:35)
[2018-06-19] MEDS ORDERED: potassium Cl 20 mEq SR tablet PO PRN ×2 (09:35)
[2018-06-19] MEDS ORDERED: potassium Cl 40MEQ/NS 500ml 500 ML IV PRN ×2 (09:35)
[2018-06-19] MEDS ORDERED: magnesium 2GM in 50ml NS 50 ML IV PRN (09:35)
[2018-06-19] MEDS: HYDROcodone/acetaminophen 10/325mg tab PO PRN (11:29)
[2018-06-19] MEDS ORDERED: ipratropium/albuterol 3ml nebule NEB PRN (15:10)
--- NOTE | 2018-06-19 18:00 | NUR ---
Patient in room MED 307. I have received report from Ninfa and had the opportunity to ask questions and assume patient care.
[2018-06-19] MEDS: magnesium Cl slow-release 64mg tablet PO SCH (20:00)
[2018-06-19] MEDS: nortriptyline 25mg capsule PO SCH (20:52)
[2018-06-19] MEDS ORDERED: bisacodyl 10mg suppository rectal RC STA (22:45)
[2018-06-20] VITALS (10 sets, daily range): BP systolic 104–156; BP diastolic 60–82
[2018-06-20 05:54] LABS: BASOPHILS % (AUTO) 0.3 % (0-1); EOSINOPHILS # (AUTO) 0.1 X10'3 (0-0.9); EOSINOPHILS % (AUTO) 1.1 % (0-6); HEMATOCRIT 33.1 % (42.0-52.0); HEMOGLOBIN 11.2 g/dl (14.0-17.9); LYMPHOCYTES # (AUTO) 0.7 X10'3 (1.1-4.8); LYMPHOCYTES % (AUTO) 6.2 % (21-51); MEAN CORPUSCULAR HEMOGLOBIN 30.7 PG (27.0-31.0); MEAN CORPUSCULAR HGB CONC 33.8 g/dL (33.0-36.5); MEAN PLATELET VOLUME 9.7 FL (7.4-10.4); MONOCYTES # (AUTO) 1.5 X10'3 (0-0.9); MONOCYTES % (AUTO) 12.5 % (2-12); NEUTROPHILS # (AUTO) 9.5 X10'3 (1.8-7.7); NEUTROPHILS % (AUTO) 79.9 % (42-75); PLATELET COUNT 213 X10'3 (140-440); RED BLOOD COUNT 3.64 X10'6 (4.70-6.10); RED CELL DISTRIBUTION WIDTH 14.1 % (11.5-14.5); WHITE BLOOD COUNT 11.9 X10'3 (4.5-11.0)
--- NOTE | 2018-06-20 06:00 | NUR ---
Patient in room MED 307. I have received report from Tevin Navarrete RN and had the opportunity to ask questions and assume patient care.
[2018-06-20 06:10] LABS: ALBUMIN 2.4 G/DL (3.4-5.0); ANION GAP 8 (8-16); BLOOD UREA NITROGEN 21 MG/DL (7-18); BUN/CREATININE RATIO 21.9 (5.4-32.0); CALCIUM 8.6 MG/DL (8.5-10.1); CHLORIDE 97 MMOL/L (99-107); CREATININE 0.96 MG/DL (0.60-1.10); GLUCOSE 160 MG/DL (70-104); MAGNESIUM 2.1 MG/DL (1.5-2.4); PHOSPHORUS 2.2 MG/DL (2.3-4.5); POTASSIUM 4.3 MMOL/L (3.5-5.1); SODIUM 131 MMOL/L (135-145); TOTAL CARBON DIOXIDE 25.7 MMOL/L (24-32); eGFR 77 ML/MIN
[2018-06-20 07:15] LABS: LACTIC SEPSIS 1.1 MMOL/L (0.4-2.0)
[2018-06-20 07:29] LABS: D-DIMER 2.01 MG/L FEU (0-0.50)
[2018-06-20] MEDS: metoprolol tartrate 12.5mg (1/2 tablet) PO SCH ×2 (07:34→22:15)
[2018-06-20] MEDS: phenytoin sod ER 100mg capsule PO SCH ×2 (07:34→22:13)
[2018-06-20] MEDS: aspirin 325mg tablet, delayed-release (Ecotrin) PO SCH (07:34)
[2018-06-20] MEDS: docusate sod 100mg capsule PO SCH ×2 (07:34→20:00)
[2018-06-20] MEDS: atorvastatin 10mg tablet PO SCH (07:34)
[2018-06-20] MEDS: pantoprazole 40mg Tablet.DR PO SCH (07:35)
[2018-06-20] MEDS: insulin glargine (Lantus) pen - multi-dose SQ SCH (07:40)
[2018-06-20 07:46] LABS: AMMONIA < 10 UMOL/L (11-32)
[2018-06-20] MEDS: K and/or MAG REPLACEMENT MC SCH (08:00)
[2018-06-20] MEDS: magnesium Cl slow-release 64mg tablet PO SCH ×2 (08:00→20:00)
[2018-06-20] MEDS: insulin Lispro (HumaLOG) vial - multi-dose SQ SCH ×3 (08:31→17:49)
[2018-06-20 09:17] LABS: CLARITY,URINE CLOUDY (Clear); COLOR,URINE YELLOW (Yellow); GLUCOSE, URINE 250 mg/dl (Neg); KETONES,URINE >=80 mg/dl (Neg); LEUKOCYTE ESTERASE ,URINE NEGATIVE (Neg); NITRITES, URINE NEGATIVE (Neg); OCCULT BLOOD,URINE LARGE (Neg); PH,URINE 5.5 (4.8-8.0); PROTEIN,URINE 100 mg/dl (Neg); UROBILINOGEN,URINE 0.2 E.U/dL (0.2-1.0)
[2018-06-20 09:18] LABS: UA COLLECTION TYPE CLN CATCH MIDSTREAM
[2018-06-20 09:24] LABS: SQUAMOUS EPITHELIAL CELL,UR FEW /LPF (FEW)
[2018-06-20 09:26] LABS: URIC ACID CRYSTALS 4+ /HPF (NEGATIVE)
[2018-06-20 09:28] LABS: WBC,URINE 0-4 /HPF (0-4)
[2018-06-20 09:29] LABS: BACTERIA,URINE FEW /HPF (Neg); COARSE GRANULAR CAST 0-3 /LPF (NEGATIVE); HYALINE CASTS 0-3 /LPF (NEGATIVE)
--- NOTE | 2018-06-20 11:05 | NUR ---
Removed pt's right IJ without complication.
[2018-06-20] MEDS: sodium chloride 0.45% 1,000 ML IV SCH (11:11)
[2018-06-20] MEDS: High Protein Shake w/Arg/Glut/Ca2+Bmb (Juven 19.3gm) pkt 240ml PO SCH ×2 (13:19→18:00)
--- NOTE | 2018-06-20 15:02 | NUR ---
Pt. is having periods of stool incontinence. It's hard to tell if it is incontinence vs if he thinks he is passing gas but then having an accident. Will continue to monitor and provide help as needed.
--- NOTE | 2018-06-20 18:09 | NUR ---
Patient in room MED 307. I have received report from Lindsey Romero RN and had the opportunity to ask questions and assume patient care.
--- NOTE | 2018-06-20 18:49 | NUR ---
Patient in room MED 307. I have received report from Trent SLAUGHTER and had the opportunity to ask questions and assume patient care.
[2018-06-20] MEDS ORDERED: amiodarone 150mg/dext, iso-os 100 ML IV ONE (20:00)
[2018-06-20] MEDS: potassium CL 10mEq/100ml bag 100 ML IV SCH ×2 (20:00→23:49)
[2018-06-20] MEDS ORDERED: amiodarone/D5 360MG/200ML BAG 200 ML IV SCH (20:00)
[2018-06-20 20:28] LABS: MAGNESIUM 2.1 MG/DL (1.5-2.4); POTASSIUM 3.6 MMOL/L (3.5-5.1)
--- NOTE | 2018-06-20 20:45 | NUR ---
Patient's monitor alarming VTach w/ HR in the 150s-160s. Went into patient's room to assess him and he was awake, alert w/ no s/s of distress. BP checked & 12 lead EKG obtained. Patient denied feeling any differently. Call placed to Dr. Teresa but received his voicemail. Called ICU to speak with electrical discharge machine operator but was advised she wouldn't be able to help much due to an emergent situation in the unit with another CABG patient. Did find out that Dr. Teresa was downstairs and that a message would be relayed to him once the emergent situation was stabilized. ICU acoustical tile patternmaker did call back with advice that the patient was not in true Vtach to try having him bear down and also to check an electrolyte panel. ICU electrical discharge machine operator called back a few minutes later stating she had relayed message to Dr. Teresa and he wanted us to give a loading bolus of Amiodarone then start a continuous drip for which she would place orders in the computer. While administering bolus dose of Amio patient converted his rhythm back into a sinus rhythm. MD arrived at bedside during this time and stated to go ahead and continue the drip overnight and he will likely change him to PO Amio in the AM.
[2018-06-20 20:58] LABS: ALBUMIN 2.6 G/DL (3.4-5.0); ANION GAP 9 (8-16); BLOOD UREA NITROGEN 17 MG/DL (7-18); BUN/CREATININE RATIO 17.5 (5.4-32.0); CALCIUM 9.1 MG/DL (8.5-10.1); CHLORIDE 98 MMOL/L (99-107); CREATININE 0.97 MG/DL (0.60-1.10); GLUCOSE 115 MG/DL (70-104); PHOSPHORUS 2.4 MG/DL (2.3-4.5); SODIUM 135 MMOL/L (135-145); TOTAL CARBON DIOXIDE 28.5 MMOL/L (24-32); eGFR 77 ML/MIN
[2018-06-20] MEDS: enoxaparin 30mg/0.3ml syringe SUBCUT SCH (22:13)
[2018-06-20] MEDS: nortriptyline 25mg capsule PO SCH (22:16)
[2018-06-21 00:45] VITALS: BP 154/72
[2018-06-21 02:00] VITALS: BP 137/71
[2018-06-21 04:00] VITALS: BP 151/96
[2018-06-21 06:00] VITALS: BP 188/77
[2018-06-21 06:25] LABS: MAGNESIUM 1.9 MG/DL (1.5-2.4); PHOSPHORUS 2.7 MG/DL (2.3-4.5)
[2018-06-21] MEDS ORDERED: magnesium 2GM in 50ml NS 50 ML IV ONE (07:35)
[2018-06-21] MEDS ORDERED: amiodarone 200mg tablet PO SCH (08:00)
[2018-06-21] MEDS: K and/or MAG REPLACEMENT MC SCH (08:00)
[2018-06-21] MEDS: magnesium Cl slow-release 64mg tablet PO SCH (08:00)
[2018-06-21] MEDS ORDERED: metoprolol tartrate 25mg tablet PO SCH (08:00)
[2018-06-21] MEDS: phenytoin sod ER 100mg capsule PO SCH (08:07)
[2018-06-21] MEDS: pantoprazole 40mg Tablet.DR PO SCH (08:08)
[2018-06-21] MEDS: docusate sod 100mg capsule PO SCH (08:08)
[2018-06-21] MEDS: aspirin 325mg tablet, delayed-release (Ecotrin) PO SCH (08:08)
[2018-06-21] MEDS: atorvastatin 10mg tablet PO SCH (08:08)
[2018-06-21] MEDS: enoxaparin 30mg/0.3ml syringe SUBCUT SCH (08:08)
[2018-06-21] MEDS: acetaminophen 325mg tablet PO PRN (08:10)
[2018-06-21] MEDS: insulin glargine (Lantus) pen - multi-dose SQ SCH (08:13)
[2018-06-21 08:14] VITALS: BP_SYST 158
[2018-06-21] MEDS: High Protein Shake w/Arg/Glut/Ca2+Bmb (Juven 19.3gm) pkt 240ml PO SCH (08:15)
[2018-06-21] MEDS: insulin Lispro (HumaLOG) vial - multi-dose SQ SCH (08:24)
--- NOTE | 2018-06-21 10:20 | NUR ---
Problems reprioritized. Patient report given, questions answered & plan of care reviewed with ARBEN AT [facility]. POTATO CHIP SACKING MACHINE OPERATOR TIME IS 1039
--- NOTE | 2018-06-21 10:33 | NUR ---
TELEVISION PARTS TESTER YOLANDA HERE [facility]SF[facility]
== END 2018-06-21 10:40 | DRG 233 ==
LOC: ER 08:10 → ED HOLD 11:44 → PCU 3S 11:52 → MED 3N 17:18 → CICU 2S 06-16 10:44 → MED 3N 06-19 17:09
PROVIDERS: ADMIT Internal Medicine; ATTEND Thoracic Surgery (Cardiothoracic Vascular Surgery)
PROC: 4A02XM4 Measurement of Cardiac Total Activity, External Approach (ICD-10-PCS; principal; 2018-06-13)
PROC: 3E033HZ Introduction of Radioactive Substance into Peripheral Vein, Percutaneous Approach (ICD-10-PCS; 2018-06-13)
PROC: 4A023N7 Measurement of Cardiac Sampling and Pressure, Left Heart, Percutaneous Approach (ICD-10-PCS; 2018-06-14)
PROC: B2111ZZ Fluoroscopy of Multiple Coronary Arteries using Low Osmolar Contrast (ICD-10-PCS; 2018-06-14)
PROC: B2151ZZ Fluoroscopy of Left Heart using Low Osmolar Contrast (ICD-10-PCS; 2018-06-14)
PROC: B41F1ZZ Fluoroscopy of Right Lower Extremity Arteries using Low Osmolar Contrast (ICD-10-PCS; 2018-06-14)
PROC: B3111ZZ Fluoroscopy of Right Brachiocephalic-Subclavian Artery using Low Osmolar Contrast (ICD-10-PCS; 2018-06-14)
PROC: B3121ZZ Fluoroscopy of Left Subclavian Artery using Low Osmolar Contrast (ICD-10-PCS; 2018-06-14)
PROC: 02100Z9 Bypass Coronary Artery, One Artery from Left Internal Mammary, Open Approach (ICD-10-PCS; 2018-06-16)
PROC: 021309W Bypass Coronary Artery, Four or More Arteries from Aorta with Autologous Venous Tissue, Open Approach (ICD-10-PCS; 2018-06-16)
PROC: 06BQ4ZZ Excision of Left Saphenous Vein, Percutaneous Endoscopic Approach (ICD-10-PCS; 2018-06-16)
PROC: 02HP32Z Insertion of Monitoring Device into Pulmonary Trunk, Percutaneous Approach (ICD-10-PCS; 2018-06-16)
PROC: 4A133B3 Monitoring of Arterial Pressure, Pulmonary, Percutaneous Approach (ICD-10-PCS; 2018-06-16)
PROC: 4A1239Z Monitoring of Cardiac Output, Percutaneous Approach (ICD-10-PCS; 2018-06-16)
PROC: 02HV33Z Insertion of Infusion Device into Superior Vena Cava, Percutaneous Approach (ICD-10-PCS; 2018-06-16)
PROC: B548ZZA Ultrasonography of Superior Vena Cava, Guidance (ICD-10-PCS; 2018-06-16)
PROC: 5A1221Z Performance of Cardiac Output, Continuous (ICD-10-PCS; 2018-06-16)
PROC: B24BZZ4 Ultrasonography of Heart with Aorta, Transesophageal (ICD-10-PCS; 2018-06-16)
PROC: 02L70CK Occlusion of Left Atrial Appendage with Extraluminal Device, Open Approach (ICD-10-PCS; 2018-06-16)
DX: I21.4 Non-ST elevation (NSTEMI) myocardial infarction (principal); I50.41 Acute combined systolic (congestive) and diastolic (congestive) heart failure; J98.11 Atelectasis; E04.1 Nontoxic single thyroid nodule; E78.5 Hyperlipidemia, unspecified; G40.909 Epilepsy, unspecified, not intractable, without status epilepticus; G47.00 Insomnia, unspecified; E11.42 Type 2 diabetes mellitus with diabetic polyneuropathy; I11.0 Hypertensive heart disease with heart failure; I25.10 Atherosclerotic heart disease of native coronary artery without angina pectoris; E66.9 Obesity, unspecified; I48.91 Unspecified atrial fibrillation; M54.9 Dorsalgia, unspecified; R32 Unspecified urinary incontinence; R55 Syncope and collapse; G89.4 Chronic pain syndrome; R50.82 Postprocedural fever; M19.90 Unspecified osteoarthritis, unspecified site; J45.909 Unspecified asthma, uncomplicated; K21.9 Gastro-esophageal reflux disease without esophagitis; K59.00 Constipation, unspecified; M47.812 Spondylosis without myelopathy or radiculopathy, cervical region; I25.2 Old myocardial infarction; Z91.041 Radiographic dye allergy status; Z91.018 Allergy to other foods; Z79.899 Other long term (current) drug therapy; Z79.4 Long term (current) use of insulin; Z79.82 Long term (current) use of aspirin; Z87.891 Personal history of nicotine dependence; Z80.1 Family history of malignant neoplasm of trachea, bronchus and lung; Z68.34 Body mass index [BMI] 34.0-34.9, adult
CPT/HCPCS: 36415; 36600; 71045; 71046; 78452; 80048; 80053; 81001; 82140; 82330; 82435; 82803; 82947; 82948; 83036; 83605; 83735; 83880; 84100; 84132; 84295; 84484; 85018; 85025; 85347; 85379; 85384; 85610; 85730; 86885; 86900; 86901; 86920; 87070; 93005; 93017; 93306; 93312; 93325; 93458; 93880; 93970; 94002; 94010; 94668; 94760; 96365; 96376; 97110; 97116; 97162; 97530; 99152; 99291; A4620; A6196; A6257; A6258; A6449; A7000; A7048; A9500; C1751; C1760; C1769; C9113; G0378; J0171; J0280; J0282; J0690; J1170; J1200; J1644; J1650; J1815; J1940; J2001; J2060; J2150; J2250; J2270; J2370; J2405; J2440; J2704; J2795; J2930; J3010; J3370; J3475; J3480; J3490; J7030; J7060; J7120; J7512; P9045; P9047; Q9967